=== PATIENT | male | born 1980 | race Caucasian/White ===

== ENCOUNTER 2017-04-04 14:57 | Emergency (ER) | payer BC ==
[~2017-04-04] VITALS: Ht 175.3 cm; Wt 73.1 kg
[~2017-04-04 14:57] MED LIST: DEPA500T3 PO
[2017-04-04 15:10] VITALS: BP 112/73; PULSE 60; RESP 18; TEMP 99; O2SAT 95
[2017-04-04 16:31] VITALS: BP 118/74; PULSE 52; RESP 18; O2SAT 100
[2017-04-04] MEDS ORDERED: SODIUM CHLOR 0.9% 1000 ML INJ 1,000 ML IV ONE (16:45)
[2017-04-04] MEDS ORDERED: KETOROLAC TROMETHAMINE 30 MG/ML (IVP) VIAL IV PUSH ONE (16:45)
[2017-04-04 16:54] LABS: AUTOMATED NEUTROPHIL # 5.1 TH/MM3 (1.8-7.7); BASOPHIL % 0.6 % (0.0-2.0); EOSINOPHIL # 0.2 TH/MM3 (0-0.4); EOSINOPHIL % 1.9 % (0.0-4.0); HEMATOCRIT 40.9 % (39.0-51.0); LYMPH % 27.1 % (9.0-44.0); LYMPHOCYTE # 2.2 TH/MM3 (1.0-4.8); MEAN CELL VOLUME 88.6 FL (80.0-100.0); MEAN CORPUSCULAR HEMOGLOBIN 30.2 PG (27.0-34.0); MEAN CORPUSCULAR HGB CONC 34.1 % (32.0-36.0); MONO % 7.5 % (0.0-8.0); NEUT % 62.9 % (16.0-70.0); PLATELET COUNT 179 TH/MM3 (150-450); RED BLOOD COUNT 4.62 MIL/MM3 (4.50-5.90); RED CELL DISTRIBUTION WIDTH 12.2 % (11.6-17.2); WHITE BLOOD COUNT 8.1 TH/MM3 (4.0-11.0)
[2017-04-04 16:55] LABS: HEMO FLAGS DIFF FINAL
[2017-04-04 16:57] VITALS: O2SAT 100
[2017-04-04 17:05] LABS: CHLORIDE 106 MEQ/L (98-107); POTASSIUM 3.7 MEQ/L (3.5-5.1); SODIUM (NA) 138 MEQ/L (136-145)
[2017-04-04 17:07] LABS: BLOOD, URINE TRACE (NEG); GLUCOSE,URINE NEG (NEG); KETONE, URINE TRACE mg/dL (NEG); NITRITE,URINE NEG (NEG); PH, URINE 5.5 (5.0-8.5)
[2017-04-04 17:09] LABS: ANION GAP 7 MEQ/L (5-15); BICARBONATE 25.3 MEQ/L (21.0-32.0); BLOOD UREA NITROGEN 17 MG/DL (7-18)
--- NOTE | 2017-04-04 17:10 | PD ---
HPI Chief Complaint: Flank/Kidney Pain Time Seen by Provider: 16:35 Travel History International Travel<30 days: No Contact w/Intl Traveler<30days: No Traveled to known affect area: No History of Present Illness HPI 36 y/o male presents with low back pain that has been present for the past couple days. He also notes difficulty with urinating. he denies other complaints. he notes prior kidney stones. pain is sharp. severity is 5/10. he denies specific modifying factors. he denies other concerns PFSH Past Medical History Arthritis: No Asthma: No Autoimmune Disease: No Blood Disorders: No Anxiety: No Depression: Yes (STRESS INDUCED) Heart Rhythm Problems: No Cancer: No Cardiovascular Problems: No High Cholesterol: No Chemotherapy: No Chest Pain: No Congestive Heart Failure: No COPD: No Cerebrovascular Accident: No Diabetes: No Diminished Hearing: No Endocrine: No Gastrointestinal Disorders: No GERD: No Glaucoma: No Genitourinary: Yes (KIDNEY STONES) Headaches: Yes Hepatitis: No Hiatal Hernia: No Hypertension: No Immune Disorder: No Implanted Vascular Access Dvce: No Kidney Stones: Yes Musculoskeletal: No Neurologic: No Psychiatric: No Reproductive: No Respiratory: No Immunizations Current: No Migraines: Yes Myocardial Infarction: No Radiation Therapy: No Renal Failure: No Seizures: No Sickle Cell Disease: No Sleep Apnea: No Thyroid Disease: No Ulcer: No Tetanus Vaccination: < 5 Years Influenza Vaccination: No ?: Not Past Surgical History Abdominal Surgery: No AICD: No Appendectomy: Yes Arteriovenous Shunt: No Cardiac Surgery: No Cholecystectomy: No Ear Surgery: Yes (EARDRUM REBUILT) Endocrine Surgery: No Eye Surgery: No Genitourinary Surgery: No Gynecologic Surgery: No Insulin Pump: No Joint Replacement: No Neurologic Surgery: No Oral Surgery: Yes Thoracic Surgery: No Tonsillectomy: Yes Tympanostomy Tube: Yes (EAR TM REPAIR.) Other Surgery: Yes Social History Alcohol Use: No Tobacco Use: No Substance Use: Yes (SMOKE MARIJUANA DAILY) Allergies-Medications (Allergen,Severity, Reaction): Coded Allergies: codeine (Unverified Allergy, Severe, Respiratory Failure, 04/04/17) *MDRO Multi-Drug Resistant Organism (Verified Adverse Reaction, Unknown, ) MRSA leg 2007. MRSA PCR Screen positive 04/17/15. Reported Meds & Prescriptions Reported Meds & Active Scripts Active Depakote ER 500 mg (Divalproex Sodium) 500 Mg Tab 1 Tab PO HS 30 Days Review of Systems Except as stated in HPI: all other systems reviewed are Neg Physical Exam Narrative GENERAL: Well-nourished, well-developed patient. well appearing SKIN: Warm and dry. HEAD: Normocephalic and atraumatic. EYES: No injection or drainage. ENT: No nasal drainage noted. NECK: Supple, trachea midline. CARDIOVASCULAR: Regular rate and rhythm RESPIRATORY: Breath sounds equal bilaterally. No accessory muscle use. GASTROINTESTINAL: Abdomen soft, non-tender, nondistended. EXTREMITIES: No edema. BACK: Nontender without obvious deformity. no cvat NEUROLOGICAL: Awake and alert. Motor and sensory grossly within normal limits. Normal speech. Data Data Last Documented VS Vital Signs Date Time Temp Pulse Resp B/P (MAP) Pulse Ox O2 Delivery O2 Flow Rate FiO2 04/04/17 17:23 04/04/17 16:57 100 Room Air 04/04/17 16:31 52 18 04/04/17 15:10 99.0 Orders Orders Complete Blood Count With Diff (04/04/17 16:39) Comprehensive Metabolic Panel (04/04/17 16:39) Urinalysis - C+S If Indicated (04/04/17 16:39) Iv Access Insert/Monitor (04/04/17 16:39) Ecg Monitoring (04/04/17 16:39) Oximetry (04/04/17 16:39) Lipase (04/04/17 16:39) Sodium Chlor 0.9% 1000 Ml Inj (Ns 1000 M (04/04/17 16:45) Ketorolac Inj (Toradol Inj) (04/04/17 16:45) Labs Laboratory Tests Test 04/04/17 16:45 White Blood Count 8.1 TH/MM3 Red Blood Count 4.62 MIL/MM3 Hemoglobin 14.0 GM/DL Hematocrit 40.9 % Mean Corpuscular Volume 88.6 FL Mean Corpuscular Hemoglobin 30.2 PG Mean Corpuscular Hemoglobin Concent 34.1 % Red Cell Distribution Width 12.2 % Platelet Count 179 TH/MM3 Mean Platelet Volume 8.5 FL Neutrophils (%) (Auto) 62.9 % Lymphocytes (%) (Auto) 27.1 % Monocytes (%) (Auto) 7.5 % Eosinophils (%) (Auto) 1.9 % Basophils (%) (Auto) 0.6 % Neutrophils # (Auto) 5.1 TH/MM3 Lymphocytes # (Auto) 2.2 TH/MM3 Monocytes # (Auto) 0.6 TH/MM3 Eosinophils # (Auto) 0.2 TH/MM3 Basophils # (Auto) 0.0 TH/MM3 CBC Comment DIFF FINAL Differential Comment Urine Collection Type CLEAN CATCH Urine Color YELLOW Urine Turbidity CLEAR Urine pH 5.5 Urine Specific [place] 1.024 Urine Protein NEG mg/dL Urine Glucose (UA) NEG mg/dL Urine Ketones TRACE mg/dL Urine Occult Blood TRACE Urine Nitrite NEG Urine Bilirubin NEG Urine Leukocyte Esterase NEG Urine RBC 0-3 /hpf Urine Squamous Epithelial Cells 0-5 /hpf Microscopic Urinalysis Comment CULT NOT INDICATED Urine Collection Time 16:45 Blood Urea Nitrogen 17 MG/DL Creatinine 0.84 MG/DL Random Glucose 86 MG/DL Total Protein 6.7 GM/DL Albumin 3.8 GM/DL Calcium Level 9.7 MG/DL Alkaline Phosphatase 64 U/L Aspartate Amino Transf (AST/SGOT) 28 U/L Alanine Aminotransferase (ALT/SGPT) 30 U/L Total Bilirubin 0.3 MG/DL Sodium Level 138 MEQ/L Potassium Level 3.7 MEQ/L Chloride Level 106 MEQ/L Carbon Dioxide Level 25.3 MEQ/L Anion Gap 7 MEQ/L Estimat Glomerular Filtration Rate 102 ML/MIN Lipase 169 U/L MDM Medical Decision Making Medical Screen Exam Complete: Yes Emergency Medical Condition: Yes Medical Record Reviewed: Yes (pmh confirmed) Interpretation(s) CBC & BMP Diagram 04/04/17 16:45 Total Protein 6.7, Albumin 3.8, Calcium Level 9.7, Alkaline Phosphatase 64, Aspartate Amino Transf (AST/SGOT) 28, Alanine Aminotransferase (ALT/SGPT) 30, Total Bilirubin 0.3 Differential Diagnosis stone, uti, musculoskeletal... Narrative Course will check labs, ua and dose with toradol and ivf and reeval, patient agrees to hold ct ed workup no acute, Patient denies any new complaints, all questions answered. Patient knows that follow up is incumbent on them and to return to the emergency room immediately if new or worsening symptoms develop. Patient given strict return precautions, vitals reviewed and are normal, agrees to further workup as an outpatient. Diagnosis Primary Impression: Back pain Qualified Codes: M54.9 - Dorsalgia, unspecified Patient Instructions: General Instructions Additional Instructions: tylenol as needed, follow with primary this week Med/Other Pt SpecificInfo: No Change to Meds Disposition: 01 DISCHARGE HOME Condition: Stable Kelly Mcdonough MD Apr 04, 2017 17:10
[2017-04-04 17:12] LABS: ALT (GPT) 30 U/L (12-78); AST (GOT) 28 U/L (15-37); GLOMERULAR FILTRATION RATE 102 ML/MIN (>89)
[2017-04-04 17:14] LABS: COMMENT (UR) CULT NOT INDICATED; CULTURE IF INDICATED CULT NOT INDICATED; METHOD OF COLLECTION CLEAN CATCH; RBC, URINE 0-3 /hpf (0-3); SQUAMOUS EPITHELIAL CELL URINE 0-5 /hpf (0-5); TOTAL BILIRUBIN ADULT 0.3 MG/DL (0.2-1.0); URINE COLOR YELLOW (YELLW/STRAW)
[2017-04-04 17:15] LABS: ALKALINE PHOSPHATASE 64 U/L (45-117)
== END 2017-04-04 17:35 | disposition home or self-care (01) ==
LOC: PHED 14:57
DX: M54.5 Low back pain (principal); R30.0 Dysuria; Z86.59 Personal history of other mental and behavioral disorders; Z87.442 Personal history of urinary calculi; Z86.69 Personal history of other diseases of the nervous system and sense organs
CPT/HCPCS: 80053; 81001; 83690; 85025; 96361; 96374; 99284; J1885; J7030